=== PATIENT | female | born 1955 | race Caucasian/White ===

== ENCOUNTER → 2019-03-30 | Outpatient (CLI) | payer OTHER ==
[~2019-03-30] MED LIST: ADVIL200 MG PO; ASPIR 8181 MG PO; ATEN; ATENOLOL; B; CALCIUM-MAGNES1 EACH PO; FISH; FISH OIL; FISH OIL 1,0001 EACH PO; GLUCO; HEMOCYTE PLUS1 EACH PO; LOSARTAN POTASS25 MG PO; MAGNESIUM OXID400 MG PO; NICOTINE LOZENGE2 MG PO; OSTEO BI-FLEX1 EACH PO; STOOL SOFTENER100 M1 PO; SYMBICORT 16010.2 GM INH; TYLENOL EXTRA500 MG PO; VENTOLIN HFA18 GM INH; VIT C; VITAMIN B-121000 MC1 PO; VITAMIN C500 M1 PO; VITAMIN D32000 UNI1 PO; ZYRT; ZYRTEC10 MG PO; [UNRECOGNIZED DRUG - CODE]; [UNRECOGNIZED DRUG - OTHER]; [UNRECOGNIZED DRUG - OTHER]; [UNRECOGNIZED DRUG - OTHER]; [UNRECOGNIZED DRUG - OTHER]; [UNRECOGNIZED DRUG - OTHER]
--- NOTE | 2019-04-09 08:20 | Diagnostic Imaging Report ---
#[id number] - MGSCRBIL #BILATERAL DIGITAL SCREENING MAMMOGRAM WITH CAD: 03/30/2019 Comparison is made to exam dated: 12/24/2016 mammogram - [facility]. The tissue of both breasts is predominantly fatty. Current study was also evaluated with a Computer Aided Detection (CAD) system. No significant masses, calcifications, or other findings are seen in either breast. There has been no significant interval change. IMPRESSION: NEGATIVE There is no mammographic evidence of malignancy. A 1 year screening mammogram is recommended. The patient will be notified by letter of the results. ALEN BERGMAN M.D., mc/melvi:04/06/2019 09:57:56 Director Of Finance: Lupe CAMARA(Frankie)(M), [facility] letter sent: Normal Exam Mammogram BI-RADS: 1 Negative
== END ==
LOC: MAMMO 08:05
PROVIDERS: ATTEND Internal Medicine
DX: Z12.31 Encounter for screening mammogram for malignant neoplasm of breast (principal)
CPT/HCPCS: 77067

== ENCOUNTER → 2019-04-18 | Day surgery (SDC) | payer OTHER ==
[2019-04-16 11:21] LABS: BASOPHILS # (AUTO) 0.1 (0.0-0.1); BASOPHILS % 1.1 % (0.0-1.0); EOSINOPHILS # (AUTO) 0.2 (0.0-0.4); EOSINOPHILS % 2.9 % (0.0-6.0); HEMATOCRIT 37.9 % (34.2-44.1); LYMPHOCYTES % 31.6 % (18.0-39.1); MEAN CORPUSCULAR HEMOGLOBIN 27.6 pg (28-32); MEAN CORPUSCULAR HGB CONC 31.7 g/dL (31-35); MEAN CORPUSCULAR VOLUME 87.3 fL (81-99); MONOCYTES # (AUTO) 0.4 (0.2-0.8); MONOCYTES % 6.1 % (4.4-11.3); NEUTROPHILS # (AUTO) 3.6 (2.1-6.9); NEUTROPHILS % 58.1 % (38.7-80.0); PLATELET COUNT 301 x10e3/uL (140-360); RED BLOOD COUNT 4.34 x10e6/uL (3.6-5.1)
[2019-04-16 11:42] LABS: INR 0.84
[2019-04-16 11:48] LABS: ALANINE AMINOTRANSFERASE 30 IU/L (0-55); ALBUMIN 3.6 g/dL (3.5-5.0); ALBUMIN/GLOBULIN RATIO 1.1 (0.8-2.0); ALKALINE PHOSPHATASE 83 IU/L (40-150); ANION GAP 12.3 mmol/L (8-16); BLOOD UREA NITROGEN 11 mg/dL (7-26); BUN/CREATININE RATIO 15 (6-25); CALCIUM 9.5 mg/dL (8.4-10.2); CARBON DIOXIDE 28 mmol/L (22-29); CHLORIDE 104 mmol/L (98-107); CREATININE, SERUM 0.73 mg/dL (0.57-1.11); EST GLOMERULAR FILTRATION RATE > 60 ML/MIN (60-); GLUCOSE 90 mg/dL (74-118); POTASSIUM 4.3 mmol/L (3.5-5.1); SODIUM 140 mmol/L (136-145)
[2019-04-18] VITALS (11 sets, daily range): BP systolic 106–126; BP diastolic 61–94
[~2019-04-18] VITALS: Ht 170.2 cm; Wt 114.3 kg
[~2019-04-18] MED LIST changes: +ADENOSINE 3MG/1ML 30ML VIAL ONE; +ASPIRIN 325 MG TAB ONE; +CLOPIDOGREL BISULFATE 75 MG TAB ONE; +FENTANYL CITRATE/PF 100MCG/2 ML INJ ONE; +HEPARIN SOD (PORCINE) 1000 UNIT/ML 30ML ONE; +HEPARIN SOD/SOD CHLORIDE 2,000 ML ONE; +IOPAMIDOL 370 MG/ML 200 ML INFUS..BTL INJ ONE; +LIDOCAINE HCL 2% LOCAL 20 ML VIAL ONE; +MIDAZOLAM HCL 2 MG/2 ML VIAL ONE; +SODIUM CHLORIDE 0.9% 1000ML 1,000 ML ONE; +SODIUM CHLORIDE 0.9% 50ML 0 ML ONE; +VERAPAMIL HCL 2.5 MG/ML 2 ML VIAL ONE
--- OUTSIDE RECORDS SUMMARY | 2019-04-18 08:52 | XMS REPORT ---
[facility] Address Unknown Phone Unavailable Care Team Providers Care Senior Bi Developer Name Role Phone RAJINDER DOE Unavailable Unavailable Problems This patient has no known problems. Allergies, Adverse Reactions, Alerts This patient has no known allergies or adverse reactions. Medications This patient has no known medications. Results Test Description Test Time Test Comments Text Results Atomic Results Result Comments MAMMOGRAPHY DIGITAL SCR BILAT 2019-03-30 08:46:00 [place] [address] Patient Name: IGNACIO ZARATE MR #: [id number] : 1955 Age/Sex: 63/F Req #: [id number] [facility] Physician: Ordered by: RAJINDER DOE MD Report #: [id number] Location: MAMMO Room/Bed: Procedure: [id number] MG/MAMMOGRAPHY DIGITAL SCR BILAT Exam Date: 03/30/19 Exam Time: 0833 REPORT STATUS: Signed #[id number] - MGSCRBIL #BILATERAL DIGITAL SCREENING MAMMOGRAM WITH CAD: 03/30/2019 Comparison is made to exam dated: 12/24/2016 mammogram - [facility]. The tissue of both breasts is predominantly fatty. Current study was also evaluated with a Computer Aided Detection (CAD) system. No significant masses, calcifications, or other findings are seen in either breast. There has been no significant interval change. IMPRESSION: NEGATIVE There is no mammographic evidence of malignancy. A 1 year screening mammogram is recommended. The patient will be notified by letter of the results. ALEN BERGMAN M.D., mc/gualberto:04/06/2019 09:57:56 Laundry Clerk: Lupe SANTIAGO)(Anton), [facility] letter sent: Normal Exam Mammogram BI-RADS: 1 Negative Dictated By: GARY BERGMAN MD 6 Transcribed By: GUALBERTO on 04/06/19956 COPY TO: RAJINDER DOE MD
--- NOTE | 2019-04-18 12:15 | NUR ---
1215 bedside report received from KINA Galvez. Alert oriented and appropriate, PERRLA, respirations even and unlabored to room air. Pulses x4 extremities equal and strong. Pedal pulses PT/DP x4 Cap fill brisk < 3 sec. Skin warm and dry integrity appears D/I. IV 20g left arm at 100cchr presents healthy w/o s/s of infiltration or complaint. Abdomen soft and supple. pt offered toileting, denies need to urinate or defecate. No personal affects with patient. Family at bedside. Pt and family verbalizes understanding of POC. Rt Tr band site w/o s/s hematoma No gross issues pain,pallor pressure or dysrhythmia. May decrease at 1330 dc at 1500pm per Dr Cavanaugh. Currently w/o complaint of pain or need. ds/kina
--- NOTE | 2019-04-18 12:20 | NUR ---
Report provided to Janell Boyer RN, review of procedural findings and medications given. Patient awake, alert, and oriented x3. maintains airway and room air saturations of 96-98%. No gross issues of pressure, pain, pallor or dysrhythmia. IV site patent with NS 0.9% clamped post procedure. patient hemodynamically stable with hemostasis right radial TR Band CDI w/o s/s of bleeding. patient transferred to [facility] under own strength w/o incident. transported to [facility] procedure: Stent to Mid LAD Sheath puller: Elaine Casas RTr applied 13ml @ 1200 Meds Given Intra-Procedure Sedatives Versed - 1 mg Fentanyl - 25 mcg Radial Cocktail - IA per MD Heparin 3000 Units Nitro 200 mcg Verapamil 2.5mg Anticoagulants Heparin - 8000 Units Fluids Input - 325ml Output - dtv Contrast Isovue 370 - 120ml Other Meds Plavix 600mg Aspirin 325mg Addendum: 04/18/19 at 1233 by Lenny Matthews RN Quinten Matthews RN continuing care responsibilities after report to Janell Boyer RN
--- NOTE | 2019-04-18 13:30 | NUR ---
1330 RADIAL Compression removal: Initial Cuff volume 13 cc -2cc cc Removed No hematoma/bleeding noted with normal neurovascular function. 1345 -2cc cc Removed No hematoma/ bleeding noted with normal neurovascular function. 1400 -2cc Removed No hematoma/bleeding noted with normal neurovascular function. 1415 -2cc Removed No hematoma/ bleeding noted with normal neurovascular function. Air removal completed. 1430 Stasis achieved sterile 2x2,Tegaderm, Coban dressing No hematoma, bleeding noted with normal neurovascular function. Wrist splint in place. Pt instructed on POC. Ds/Rn
--- NOTE | 2019-04-18 15:00 | NUR ---
1500Pt meets DC criteria.Rt radial assessed for s/s of complication and presence of hematoma. XXXXX warm, dry, no discolor, and pulses present. IV removed from XXXX. Distal tip appears intact. VS WNL. Pt denies pain, sob, or need at this time. Family at bedside. Review of discharge paperwork and follow up instructions. verbalized understanding. Pt to wheelchair and transported to front of hospital. Transferred to private vehicle under own strength w/o incident with DC paperwork in hand. - ds/rn
--- NOTE | 2019-04-18 20:13 | Operative Report ---
DATE OF PROCEDURE: 04/18/2019 SURGEON: Jericho Cavanaugh MD INDICATION FOR PROCEDURE: Chest pain, positive stress test, abnormal carotid Doppler. PREPROCEDURE ASSESSMENT: The risks, benefits, and alternatives of the procedure were explained to the patient prior to the procedure. Informed consent was obtained as documented in the medical record. The patient was deemed to be an appropriate candidate for moderate sedation based on medical history, social history, and prior experience with anesthesia. MEDICATIONS: Please see nursing notes for medications administered during the procedure. PROCEDURES PERFORMED: 1. Coronary angiography, right radial approach. 2. Left heart catheterization. 3. Bilateral carotid angiography. 4. Percutaneous intervention to proximal LAD with Synergy 3.0 x 16 mm drug-eluting stent. PROCEDURE DETAILS: The patient was brought to the cardiac catheterization laboratory in a fasting state. Right wrist was prepped and draped in a sterile fashion. Right radial artery was accessed using modified Seldinger technique and a 6-Estonian Slender sheath was inserted into the right radial artery. Coronary angiography was performed using a sterile radial catheter and a JR4 catheter. Left heart catheterization was performed using a Sandy radial catheter. Bilateral carotid angiography was performed using JR4 5-Estonian catheter. All catheters were exchanged over a wire. Angiography findings as detailed below. There was a 70% lesion in the proximal LAD. We decided to proceed with intervention given apical ischemia on stress test. For PCI of the LAD, XB3.0 6-Estonian guide was used, which provided excellent support. The lesion was crossed using a Terumo Runthrough 0.014 inch guidewire. Direct stenting was performed using a Synergy 3.0 x 16 mm drug-eluting stent and deployed at 14 atmospheres. This resulted in excellent angiographic result without any significant dissection, thrombus, or spasm. Case ended without any complications. FINDINGS: Coronary angiography demonstrated codominant coronary system. There was a 70% plaque in the proximal LAD just before takeoff of the first diagonal branch. Otherwise, there was mild past mild plaquing only in the circumflex and RCA without any obstructive CAD. Carotid angiography, left carotid artery demonstrated a 30% plaque in the left internal carotid artery in the proximal portion. Otherwise, no significant carotid artery disease. Right carotid artery demonstrated only about a 10% plaque in the proximal portion of the right internal carotid artery without significant stenosis. GRAFTS AND IMPLANTS: None. ESTIMATED BLOOD LOSS: 50 mL. COMPLICATIONS: None. SPECIMENS REMOVED: None. FINAL RECOMMENDATIONS: 1. TR band deflation at 90 minute. 2. Continue aspirin 81 mg daily for life and Plavix 75 mg daily for 12 months. 3. Continue optimal medical therapy and risk factor control. 4. Follow up in office 2 weeks post procedure. MD GRACY Ramirez/VINCENT /[id number]
== END | disposition home or self-care (01) ==
LOC: CATH LAB 08:42
PROVIDERS: ATTEND Internal Medicine
DX: I25.118 Atherosclerotic heart disease of native coronary artery with other forms of angina pectoris (principal); I65.23 Occlusion and stenosis of bilateral carotid arteries; I10 Essential (primary) hypertension; E78.5 Hyperlipidemia, unspecified; Z87.891 Personal history of nicotine dependence; E66.9 Obesity, unspecified; Z68.39 Body mass index [BMI] 39.0-39.9, adult; Z79.82 Long term (current) use of aspirin; Z79.1 Long term (current) use of non-steroidal anti-inflammatories (NSAID); Z88.6 Allergy status to analgesic agent; Z88.5 Allergy status to narcotic agent; Z88.2 Allergy status to sulfonamides
CPT/HCPCS: 36222; 36415; 80053; 85025; 85610; 92928; 93458; C1769; C1874; C1887; J1644; J2001; J2250; J3010; J7030; Q9967; J0153

== ENCOUNTER 2019-07-31 07:24 | Outpatient (RCR) | payer OTHER ==
[~2019-07-31 07:24] MED LIST changes: -ADENOSINE 3MG/1ML 30ML VIAL ONE; -ASPIRIN 325 MG TAB ONE; -CLOPIDOGREL BISULFATE 75 MG TAB ONE; -FENTANYL CITRATE/PF 100MCG/2 ML INJ ONE; -HEPARIN SOD (PORCINE) 1000 UNIT/ML 30ML ONE; -HEPARIN SOD/SOD CHLORIDE 2,000 ML ONE; -IOPAMIDOL 370 MG/ML 200 ML INFUS..BTL INJ ONE; -LIDOCAINE HCL 2% LOCAL 20 ML VIAL ONE; -MIDAZOLAM HCL 2 MG/2 ML VIAL ONE; -SODIUM CHLORIDE 0.9% 1000ML 1,000 ML ONE; -SODIUM CHLORIDE 0.9% 50ML 0 ML ONE; -VERAPAMIL HCL 2.5 MG/ML 2 ML VIAL ONE
== END 2019-08-04 ==
LOC: PT 07:24
PROVIDERS: ATTEND Specialist
DX: M17.11 Unilateral primary osteoarthritis, right knee (principal)

== ENCOUNTER 2019-11-12 19:15 | Emergency (ER) | payer BC ==
[~2019-11-12] VITALS: Ht 170.2 cm; Wt 114.3 kg
[2019-11-12 20:33] LABS: BASOPHILS # (AUTO) 0.1 (0.0-0.1); BASOPHILS % 0.9 % (0.0-1.0); EOSINOPHILS # (AUTO) 0.1 (0.0-0.4); EOSINOPHILS % 1.5 % (0.0-6.0); LYMPHOCYTES % 24.1 % (18.0-39.1); MEAN CORPUSCULAR HEMOGLOBIN 25.5 pg (28-32); MEAN CORPUSCULAR HGB CONC 29.8 g/dL (31-35); MEAN CORPUSCULAR VOLUME 85.6 fL (81-99); MONOCYTES # (AUTO) 0.7 (0.2-0.8); MONOCYTES % 7.7 % (4.4-11.3); NEUTROPHILS # (AUTO) 5.5 (2.1-6.9); NEUTROPHILS % 65.4 % (38.7-80.0); PLATELET COUNT 536 x10e3/uL (140-360); RED BLOOD COUNT 2.63 x10e6/uL (3.6-5.1); RED CELL DISTRIBUTION WIDTH 14.8 % (11.7-14.4)
[2019-11-12 20:39] LABS: HEMATOCRIT 22.5 % (34.2-44.1)
[2019-11-12 20:43] LABS: HEMOGLOBIN 6.7 g/dL (12.0-16.0)
[2019-11-12] MEDS ORDERED: SODIUM CHLORIDE 0.9% 250ML 250 ML IV ONE (20:45)
[2019-11-12 20:55] LABS: ALANINE AMINOTRANSFERASE 14 IU/L (0-55); ALBUMIN 3.8 g/dL (3.5-5.0); ALBUMIN/GLOBULIN RATIO 1.3 (0.8-2.0); ALKALINE PHOSPHATASE 77 IU/L (40-150); BLOOD UREA NITROGEN 14 mg/dL (7-26); BUN/CREATININE RATIO 17 (6-25); CALCIUM 9.2 mg/dL (8.4-10.2); CARBON DIOXIDE 27 mmol/L (22-29); CHLORIDE 108 mmol/L (98-107); CREATININE, SERUM 0.82 mg/dL (0.57-1.11); EST GLOMERULAR FILTRATION RATE > 60 ML/MIN (60-); GLUCOSE 117 mg/dL (74-118); SODIUM 141 mmol/L (136-145)
--- NOTE | 2019-11-12 23:34 | NUR ---
Informed consent obtained at this time.
--- NOTE | 2019-11-13 00:08 | NUR ---
Awaiting for unit of blood for transfusion at this time.
[2019-11-13] MEDS ORDERED: SODIUM CHLORIDE 0.9% 250ML 250 ML ONE (01:06)
--- NOTE | 2019-11-13 01:38 | NUR ---
Patient tolerated first 15 minutes of blood transfusion well. No distress noted. Will continue to monitor patient.
== END 2019-11-13 05:02 | disposition home or self-care (01) ==
LOC: ER 19:15
DX: D50.0 Iron deficiency anemia secondary to blood loss (chronic) (principal)
CPT/HCPCS: 36415; 80053; 85025; 86850; 86900; 86920; 99283; J7050; P9016

== ENCOUNTER → 2020-05-09 | Outpatient (CLI) | payer BC | LOC: MAMMO 09:12 | PROVIDERS: ATTEND Internal Medicine | DX: Z12.31 Encounter for screening mammogram for malignant neoplasm of breast (principal) | CPT/HCPCS: 77067 ==